=== PATIENT | male | born 1960 | race Two or more races ===

== ENCOUNTER 2021-03-19 14:04 | Emergency (ER) | payer SELFPAY ==
[2021-03-19 14:25] VITALS: BP 155/84; PULSE 120; TEMP 97; BMI 24.0
[2021-03-19] MEDS ORDERED: ACETAMINOPHEN 500 MG TABLET (FP) PO ONE (14:45)
[2021-03-19] MEDS ORDERED: KETOROLAC TROMETHAMINE 60 MG/2 ML VIAL IM ONE (14:45)
[2021-03-19] MEDS ORDERED: KETOROLAC TROMETHAMINE 60 MG/2 ML VIAL ONE (14:51)
[2021-03-19] MEDS ORDERED: ACETAMINOPHEN 500 MG TABLET (FP) ONE (14:52)
== END 2021-03-19 16:25 | disposition home or self-care (01) ==
LOC: JER 14:04
PROC: 3E023GC Introduction of Other Therapeutic Substance into Muscle, Percutaneous Approach (ICD-10-PCS; principal; 2021-03-19)
DX: M54.50 Low back pain, unspecified (principal)
CPT/HCPCS: 72100-TC-FY; 99284-25